=== PATIENT | female | born 1945 | race Caucasian/White ===

== ENCOUNTER 2021-01-10 06:05 | Inpatient (IN) | payer OTHER ==
[~2021-01-10] VITALS: Ht 160 cm; Wt 85.4 kg
[~2021-01-10 06:05] MED LIST: AMLO-489 PO; ATOR20TA PO; CLON1TAB10 PO; FLUO1TAB3 PO; HYDR-4072 PO; HYDR-4188 PO; LOSA-39 PO; PANT1INJ3 PO; ROPI1TAB4 PO
[2021-01-10] MEDS ORDERED: ceFAZolin 1GM/50ML 100 ML IV ONE (07:00)
[2021-01-10] MEDS ORDERED: EPINEPHrine HCL 1 MG/1 ML AMP ONE (07:20)
[2021-01-10] MEDS ORDERED: MORPHINE SULF(PF) 0.5MG/ML 10ML VIAL ONE (07:20)
[2021-01-10] MEDS ORDERED: fentaNYL CITRATE 100 MCG/2 ML VL ONE (07:20)
[2021-01-10] MEDS ORDERED: VANCOMYCIN HCL 1000 MG VL ONE ×2 (07:21)
[2021-01-10] MEDS ORDERED: MIDAZOLAM HCL 1MG/1ML-2 ML VIAL ONE (07:21)
[2021-01-10] MEDS ORDERED: ePHEDrine SULFATE 50 MG/ML AMP IV ONE (07:23)
[2021-01-10] MEDS ORDERED: TETRACAINE 1% INJ 2 ML VIAL IJ ONE (07:23)
[2021-01-10] MEDS ORDERED: TRANEXAMIC ACID 20 ML ONE (08:20)
[2021-01-10] MEDS ORDERED: EPINEPHrine HCL 1 MG/1 ML AMP IM ONE (08:55)
[2021-01-10] MEDS ORDERED: PROPOFOL 10 MG/ML 20 ML IV ONE (10:04)
[2021-01-10] MEDS ORDERED: ONDANSETRON HCL 4 MG/2 ML VIAL ONE (10:14)
[2021-01-10] MEDS ORDERED: ONDANSETRON HCL 4 MG/2 ML VIAL IV PRN (10:15)
[2021-01-10] MEDS ORDERED: diphenhdrAMINE HCL 50 MG/1 ML VL IV PRN (10:15)
[2021-01-10] MEDS ORDERED: DexAMETHasone SOD PHOS 10MG/1ML VIAL INJ IV PRN ×2 (10:15→12:30)
[2021-01-10] MEDS ORDERED: HYDROmorphone HCL 2 MG/ML VL IV PRN ×2 (10:15→10:30)
[2021-01-10] MEDS ORDERED: NALOXONE HCL 0.4 MG/ML VIAL IV PRN (10:15)
[2021-01-10] MEDS ORDERED: NALBUPHINE HCL 10 MG/1ml INJECTION SUBCUT ONE (10:15)
[2021-01-10] MEDS ORDERED: oxyCODONE HCL 5MG TAB PO PRN (10:30)
[2021-01-10] MEDS: ACETAMINOPHEN 325 MG TAB PO SCH ×3 (11:50→23:58)
[2021-01-10] MEDS ORDERED: clonazePAM 0.5 MG TAB PO PRN (12:00)
[2021-01-10] MEDS ORDERED: ACETAMINOPHEN 325 MG TAB PO SCH (12:00)
[2021-01-10] MEDS: oxyCODONE HCL 5MG TAB PO PRN ×2 (13:23→19:09)
[2021-01-10] MEDS: ceFAZolin 1GM 2 GM in D5W 5% 100 ML IV SCH ×2 (14:37→21:49)
[2021-01-10] MEDS: D5W/LACTATED RINGERS 1,000 ML IV SCH ×2 (14:39→20:30)
[2021-01-10 19:00] VITALS: BP 130/62
[2021-01-10 20:00] VITALS: BP 113/73
[2021-01-10 21:00] VITALS: BP 111/88
[2021-01-10] MEDS: ATORVASTATIN 20 MG TAB PO SCH (21:18)
[2021-01-10] MEDS: ASPirin 81 mg TAB PO SCH (21:18)
[2021-01-10] MEDS: PREGABALIN 25 MG CAP PO SCH (21:18)
[2021-01-10 22:00] VITALS: BP 113/72
[2021-01-10 22:35] VITALS: BP 123/64
[2021-01-10 23:00] VITALS: BP 123/64
[2021-01-11] VITALS (11 sets, daily range): BP systolic 118–150; BP diastolic 65–81
[2021-01-11] MEDS: oxyCODONE HCL 5MG TAB PO PRN ×4 (04:42→22:13)
[2021-01-11] MEDS: ACETAMINOPHEN 325 MG TAB PO SCH ×3 (05:33→18:39)
[2021-01-11] MEDS: D5W/LACTATED RINGERS 1,000 ML IV SCH ×2 (06:30→16:30)
[2021-01-11] MEDS: PANTOPRAZOLE 40 MG/10 ML VIAL INJ IV SCH (09:38)
[2021-01-11] MEDS: ASPirin 81 mg TAB PO SCH ×2 (09:38→22:12)
[2021-01-11] MEDS: PREGABALIN 25 MG CAP PO SCH ×2 (09:39→22:12)
[2021-01-11] MEDS: FLUoxetine HCL 20 MG CAP PO SCH (09:39)
[2021-01-11] MEDS: LOSARTAN POTASSIUM 50 MG TAB PO SCH (09:40)
[2021-01-11] MEDS: amLODIPine BESYLATE 5 MG TAB PO SCH (09:40)
[2021-01-11] MEDS: hydrOXYchloroQUINE SULFATE 200 MG TAB PO SCH (09:46)
[2021-01-11] MEDS ORDERED: ROPINIROLE HYDROCHLORIDE 2 MG PO SCH (10:00)
[2021-01-11] MEDS ORDERED: DOCUSATE SOD 100 MG CAP PO PRN (12:45)
[2021-01-11] MEDS: ATORVASTATIN 20 MG TAB PO SCH (22:12)
[2021-01-12] MEDS: ACETAMINOPHEN 325 MG TAB PO SCH ×3 (00:38→12:24)
[2021-01-12] MEDS: D5W/LACTATED RINGERS 1,000 ML IV SCH (02:19)
[2021-01-12] MEDS: oxyCODONE HCL 5MG TAB PO PRN ×2 (02:30→10:25)
[2021-01-12 05:00] VITALS: BP 104/54
[2021-01-12 08:49] VITALS: BP 103/53
[2021-01-12] MEDS: ASPirin 81 mg TAB PO SCH (09:38)
[2021-01-12] MEDS: PREGABALIN 25 MG CAP PO SCH (09:39)
[2021-01-12] MEDS: amLODIPine BESYLATE 5 MG TAB PO SCH (09:39)
[2021-01-12] MEDS: PANTOPRAZOLE 40 MG/10 ML VIAL INJ IV SCH (09:39)
[2021-01-12] MEDS: LOSARTAN POTASSIUM 50 MG TAB PO SCH (09:39)
[2021-01-12] MEDS: hydrOXYchloroQUINE SULFATE 200 MG TAB PO SCH (09:40)
[2021-01-12] MEDS: FLUoxetine HCL 20 MG CAP PO SCH (09:40)
[2021-01-12 10:12] VITALS: BP 103/53
== END 2021-01-12 12:45 | disposition home health service (06) | DRG 470 ==
LOC: SUR 06:05 → TELE-EAST 06:06
PROVIDERS: ADMIT Orthopaedic Surgery; ATTEND Orthopaedic Surgery
PROC: 0SRD0J9 Replacement of Left Knee Joint with Synthetic Substitute, Cemented, Open Approach (ICD-10-PCS; principal; 2021-01-10 07:33)
DX: M17.0 Bilateral primary osteoarthritis of knee (principal); D62 Acute posthemorrhagic anemia; Z20.822 Contact with and (suspected) exposure to COVID-19; Z88.8 Allergy status to other drugs, medicaments and biological substances; E66.9 Obesity, unspecified; Z68.29 Body mass index [BMI] 29.0-29.9, adult; M21.00 Valgus deformity, not elsewhere classified, unspecified site
CPT/HCPCS: 73562; 86850; 86900; 86901; 97116; 97163; 97530; C1713; C9113; G0378; J0171; J0690; J2250; J2405; J2704; J7060

== ENCOUNTER 2023-03-16 07:50 | Inpatient (IN) | payer OTHER ==
[2023-03-14 10:33] VITALS: PULSE 63; RESP 18; O2SAT 95
[2023-03-16] VITALS (11 sets, daily range): BP systolic 107–139; BP diastolic 53–71; PULSE 55–70; RESP 14–18; TEMP 96.4–97.2; O2SAT 93–97
[~2023-03-16] VITALS: Ht 160 cm; Wt 95.0 kg
[~2023-03-16 07:50] MED LIST changes: +ALBU0.08 HHN; +ALBU108A5 IN; -AMLO-489 PO; +AMLO1TAB22 PO; +BACL20TA PO; +CLON-853 PO; -CLON1TAB10 PO; -FLUO1TAB3 PO; +FLUO40CA PO; +GABA-1250 PO; +IBUP-1456 PO; -LOSA-39 PO; +LOSA100T58 PO; +NYSTOIN EX
[2023-03-16] MEDS ORDERED: ACETAMINOPHEN IV 100 ML IV ONE (09:05)
[2023-03-16] MEDS ORDERED: PREGABALIN CAPSULE 75 MG CAP ONE (09:05)
[2023-03-16] MEDS ORDERED: ACETAMINOPHEN IV 1000 MG/100ML (10MG/ML) IV ONE (09:15)
[2023-03-16] MEDS ORDERED: PREGABALIN CAPSULE 75 MG CAP PO ONE (09:15)
[2023-03-16] MEDS ORDERED: ceFAZolin 1GM/50ML 100 ML IV ONE (11:40)
[2023-03-16] MEDS ORDERED: TRANEXAMIC ACID 20 ML ONE (11:44)
[2023-03-16] MEDS ORDERED: ceFAZolin 1GM/50ML 50 ML IV ONE (11:44)
[2023-03-16] MEDS ORDERED: BUPIVACAINE 0.25% INJ 50ML VIAL ONE (11:44)
[2023-03-16] MEDS ORDERED: VANCOMYCIN HCL 1000 MG VL ONE (11:45)
[2023-03-16] MEDS ORDERED: KETOROLAC TROMETH 30 MG/ML 1ML VIAL ONE (11:50)
[2023-03-16] MEDS ORDERED: TETRACAINE 1% INJ 2 ML VIAL IJ ONE (11:53)
[2023-03-16] MEDS ORDERED: ONDANSETRON HCL 4 MG/2 ML VIAL ONE (11:55)
[2023-03-16] MEDS ORDERED: PROPOFOL 10 MG/ML 20 ML IV ONE ×2 (11:55→13:59)
[2023-03-16] MEDS ORDERED: fentaNYL CITRATE 100 MCG/2 ML VL ONE (11:55)
[2023-03-16] MEDS ORDERED: MORPHINE SULF PF 5 MG/10 ML VIAL ONE (11:55)
[2023-03-16] MEDS ORDERED: MIDAZOLAM HCL 2MG/2ML 2ml VIAL (1mg/ml) ONE (11:55)
[2023-03-16] MEDS ORDERED: SODIUM CHLORIDE LOCK 10 ML ONE (11:55)
[2023-03-16] MEDS ORDERED: DexAMETHasone SOD PHOS 10MG/1ML VIAL INJ ONE ×2 (11:55→14:16)
[2023-03-16] MEDS ORDERED: ALBUTEROL SULF 2.5 MG/0.5ML(0.5%) NEB SOLN NEB PRN (14:15)
[2023-03-16] MEDS ORDERED: ONDANSETRON HCL 4 MG/2 ML VIAL IV PRN (14:15)
[2023-03-16] MEDS ORDERED: EPINEPHrine HCL 1 MG/1 ML AMP ONE (14:15)
[2023-03-16] MEDS ORDERED: NITROGLYCERIN 0.4 MG SL TAB SL PRN (14:15)
[2023-03-16] MEDS ORDERED: diphenhdrAMINE HCL 50 MG/1 ML VL IV PRN (14:15)
[2023-03-16] MEDS ORDERED: MORPHINE SULFATE INJ 2 MG/ml SYRG IV PRN ×2 (14:15)
[2023-03-16] MEDS ORDERED: METOCLOPRAMIDE HCL 5MG/ml INJ 2ml VIAL IV PRN (14:15)
[2023-03-16] MEDS ORDERED: NALOXONE HCL 0.4 MG/ML VIAL IV PRN (14:15)
[2023-03-16] MEDS ORDERED: HYDROmorphone HCL 2 MG/ML VL/or syr IV PRN ×3 (14:15)
[2023-03-16] MEDS ORDERED: clonazePAM 0.5 MG TAB PO PRN (14:30)
[2023-03-16] MEDS: LACTATED RINGER'S 1,000 ML IV SCH (14:30)
[2023-03-16] MEDS: ceFAZolin 1GM/50ML 50 ML IV SCH ×2 (20:15→20:48)
[2023-03-16] MEDS: SODIUM CHLOR 0.9% PF (SALINE LOCK) 10ML VIAL/SYR IV SCH (21:55)
[2023-03-16] MEDS: DOCUSATE SOD 100 MG CAP PO SCH (21:55)
[2023-03-16] MEDS: GABAPENTIN 300 MG CAP PO SCH (21:56)
[2023-03-17] VITALS (28 sets, daily range): BP systolic 80–117; BP diastolic 48–69; PULSE 58–75; RESP 12–18; TEMP 97.4–98.1; O2SAT 91–98
[2023-03-17] MEDS: LACTATED RINGER'S 1,000 ML IV SCH ×3 (01:08→20:15)
[2023-03-17] MEDS: ceFAZolin 1GM/50ML 50 ML IV SCH (02:35)
[2023-03-17] MEDS: HYDROcodone-ACET 5/325MG TAB PO PRN ×3 (02:40→20:33)
[2023-03-17] MEDS: GABAPENTIN 300 MG CAP PO SCH ×3 (06:34→20:32)
[2023-03-17] MEDS: SODIUM CHLOR 0.9% PF (SALINE LOCK) 10ML VIAL/SYR IV SCH ×3 (06:35→22:14)
[2023-03-17] MEDS: LOSARTAN POTASSIUM 50 MG TAB PO SCH (10:00)
[2023-03-17] MEDS: amLODIPine BESYLATE 5 MG TAB PO SCH (10:00)
[2023-03-17] MEDS: ROPINIROLE HYDROCHLORIDE 2 MG PO SCH (10:00)
[2023-03-17] MEDS: ATORVASTATIN 20 MG TAB PO SCH (10:03)
[2023-03-17] MEDS: PANTOPRAZOLE 40 MG/10 ML VIAL INJ IV SCH (10:03)
[2023-03-17] MEDS: ENOXAPARIN SOD 40 MG/0.4 ML SYRINGE SC SCH (10:03)
[2023-03-17] MEDS: FLUoxetine HCL 20 MG CAP PO SCH (10:03)
[2023-03-17] MEDS: DOCUSATE SOD 100 MG CAP PO SCH ×2 (10:03→20:33)
[2023-03-18] VITALS (9 sets, daily range): BP systolic 91–157; BP diastolic 51–69; PULSE 62–83; RESP 16–20; TEMP 36.9; O2SAT 93–100
[2023-03-18] MEDS: HYDROcodone-ACET 5/325MG TAB PO PRN ×2 (04:48→20:04)
[2023-03-18] MEDS: SODIUM CHLOR 0.9% PF (SALINE LOCK) 10ML VIAL/SYR IV SCH ×3 (05:16→22:00)
[2023-03-18] MEDS: LACTATED RINGER'S 1,000 ML IV SCH (05:16)
[2023-03-18] MEDS: GABAPENTIN 300 MG CAP PO SCH ×3 (05:20→21:43)
[2023-03-18 06:19] LABS: Basophils # (auto) 0 10 ^3/uL (0-0.2); Basophils % (auto) 0.1 % (0.0-2.0); Eosinophils # (auto) 0 10 ^3/uL (0-0.8); Eosinophils % (auto) 0.1 % (0.0-7.0); Hematocrit 32.1 % (36.0-46.0); Hemoglobin 10.8 g/dL (12.2-16.2); Lymphocytes # (auto) 1.2 10 ^3/uL (0.4-5.4); Lymphocytes % (auto) 9.3 % (10.0-50.0); Mean Corpuscular Hemoglobin 31.1 pg (28.0-32.0); Mean Corpuscular Hgb Conc. 33.5 g/dL (32.0-36.0); Monocytes # (auto) 0.9 10 ^3/uL (0-1.3); Monocytes % (auto) 6.8 % (0.0-12.0); Neutrophils # (auto) 11.1 10 ^3/uL (1.6-8.6); Neutrophils % (auto) 83.7 % (37.0-80.0); Red Blood Cells 3.46 10^6/uL (4.0-5.20); Red Cell Distribution Width 14.6 % (11.8-14.3); White Blood Cell 13.2 10^3/uL (4.4-10.8)
[2023-03-18 06:34] LABS: Anion Gap 4 (5-15); Carbon Dioxide 25 mmol/L (20-30); Chloride 107 mmol/L (98-107); Potassium 4.7 mmol/L (3.5-5.1); Sodium 136 mmol/L (136-145)
[2023-03-18 06:36] LABS: Calcium 9.3 mg/dL (8.7-10.4)
[2023-03-18 06:40] LABS: Blood Urea Nitrogen 24 mg/dL (9-23); Glucose 133 mg/dL (74-106)
[2023-03-18] MEDS: ENOXAPARIN SOD 40 MG/0.4 ML SYRINGE SC SCH (09:06)
[2023-03-18] MEDS: PANTOPRAZOLE 40 MG/10 ML VIAL INJ IV SCH (09:06)
[2023-03-18] MEDS: ATORVASTATIN 20 MG TAB PO SCH (09:06)
[2023-03-18] MEDS: FLUoxetine HCL 20 MG CAP PO SCH (09:07)
[2023-03-18] MEDS: DOCUSATE SOD 100 MG CAP PO SCH ×2 (09:07→21:43)
[2023-03-18] MEDS: amLODIPine BESYLATE 5 MG TAB PO SCH (09:13)
[2023-03-18] MEDS: LOSARTAN POTASSIUM 50 MG TAB PO SCH (09:14)
[2023-03-18] MEDS: ROPINIROLE HYDROCHLORIDE 2 MG PO SCH (09:17)
[2023-03-19] MEDS: LACTATED RINGER'S 1,000 ML IV SCH ×2 (02:15→12:15)
[2023-03-19 05:20] VITALS: BP 131/74; PULSE 82; RESP 18; TEMP 98.1; O2SAT 93
[2023-03-19] MEDS: GABAPENTIN 300 MG CAP PO SCH (05:43)
[2023-03-19] MEDS: SODIUM CHLOR 0.9% PF (SALINE LOCK) 10ML VIAL/SYR IV SCH (06:00)
[2023-03-19 08:00] VITALS: PULSE 76; PULSE 78; RESP 18; O2SAT 94
[2023-03-19 08:03] VITALS: BP 91/51; TEMP 36.9
[2023-03-19 09:11] VITALS: BP 145/70; PULSE 78; RESP 20; TEMP 98; O2SAT 94
[2023-03-19] MEDS: ENOXAPARIN SOD 40 MG/0.4 ML SYRINGE SC SCH (09:31)
[2023-03-19] MEDS: HYDROcodone-ACET 5/325MG TAB PO PRN (09:31)
[2023-03-19] MEDS: FLUoxetine HCL 20 MG CAP PO SCH (09:31)
[2023-03-19] MEDS: DOCUSATE SOD 100 MG CAP PO SCH (09:31)
[2023-03-19] MEDS: PANTOPRAZOLE 40 MG/10 ML VIAL INJ IV SCH (09:31)
[2023-03-19] MEDS: ATORVASTATIN 20 MG TAB PO SCH (09:31)
[2023-03-19] MEDS: ROPINIROLE HYDROCHLORIDE 2 MG PO SCH (09:32)
[2023-03-19] MEDS: amLODIPine BESYLATE 5 MG TAB PO SCH (09:32)
[2023-03-19] MEDS: LOSARTAN POTASSIUM 50 MG TAB PO SCH (09:32)
[2023-03-19 10:26] VITALS: BP 145/70; TEMP 36.7
[2023-03-19 12:39] VITALS: BP 141/79; PULSE 87; RESP 20; TEMP 97.9; O2SAT 93
== END 2023-03-19 13:13 | disposition home health service (06) | DRG 468 ==
LOC: SUR 07:50 → TELE 14:08 → TELE-WESTW 16:57
PROVIDERS: ADMIT Orthopaedic Surgery Adult Reconstructive Orthopaedic Surgery; ATTEND Orthopaedic Surgery Adult Reconstructive Orthopaedic Surgery
PROC: 0SP90JZ Removal of Synthetic Substitute from Right Hip Joint, Open Approach (ICD-10-PCS; 2023-03-16)
PROC: 0SR90JZ Replacement of Right Hip Joint with Synthetic Substitute, Open Approach (ICD-10-PCS; principal; 2023-03-16 12:35)
DX: T84.090A Other mechanical complication of internal right hip prosthesis, initial encounter (principal); M16.11 Unilateral primary osteoarthritis, right hip; Y79.2 Prosthetic and other implants, materials and accessory orthopedic devices associated with adverse incidents; Y92.89 Other specified places as the place of occurrence of the external cause
CPT/HCPCS: 36415; 72170; 80048; 85025; 86850; 86900; 86901; 94640; 97110; 97116; 97163; 97530; C9113; G0378; J0131; J0171; J0690; J1100; J1885; J2250; J2405; J2704; J3490